=== PATIENT | male | born 1990 | race Caucasian/White ===

== ENCOUNTER 2020-02-20 06:10 | Emergency (ER) | payer OTHER ==
[~2020-02-20] VITALS: Ht 198.1 cm; Wt 103.4 kg
[2020-02-20 06:32] VITALS: BP 126/81
== END 2020-02-20 09:01 | disposition home or self-care (01) ==
LOC: ER 06:10
DX: S46.911A Strain of unspecified muscle, fascia and tendon at shoulder and upper arm level, right arm, initial encounter (principal); V00.311A Fall from snowboard, initial encounter; Y93.23 Activity, snow (alpine) (downhill) skiing, snowboarding, sledding, tobogganing and snow tubing; Y92.89 Other specified places as the place of occurrence of the external cause; Y99.8 Other external cause status
CPT/HCPCS: 73030